=== PATIENT | female | born 1975 | race Caucasian/White ===

== ENCOUNTER → 2016-04-14 | Outpatient (CLI) | payer OTHER ==
[~2016-04-14] VITALS: Ht 167.6 cm; Wt 75.0 kg
[~2016-04-14] MED LIST: CLARITIN10 M3 PO; FOLIC ACID0.8 MG PO; LEVO-T50 MCG PO; LEVOTHYROXINE25 MCG PO; Levothroid,Synthroid PO; Motrin PO; PRENATAL ONE T1 EACH PO; PRENATAL TABLE1 EAC3 PO; Tylenol Extra Streng PO
[2016-04-14 14:19] VITALS: BP 106/63
== END | disposition home or self-care (01) ==
LOC: IVINF 13:00
DX: O20.0 Threatened abortion (principal); Z3A.00 Weeks of gestation of pregnancy not specified; Z88.6 Allergy status to analgesic agent
CPT/HCPCS: 96372; J2790